=== PATIENT | female | born 1995 ===

== ENCOUNTER 2021-08-21 10:25 | Emergency (ER) | payer OTHER ==
[~2021-08-21] VITALS: Ht 157.5 cm; Wt 63.5 kg
[2021-08-21 12:11] VITALS: BP 134/71
[2021-08-21] MEDS ORDERED: AMOX-277 PO (12:24)
[2021-08-21] MEDS ORDERED: IBUP800T27 PO (12:24)
== END 2021-08-21 12:31 | disposition home or self-care (01) ==
LOC: ER 10:25
DX: H66.91 Otitis media, unspecified, right ear (principal); Z79.1 Long term (current) use of non-steroidal anti-inflammatories (NSAID); Z79.2 Long term (current) use of antibiotics